=== PATIENT | female | born 1965 | race Caucasian/White ===

== ENCOUNTER 2021-05-03 17:48 | Emergency (ER) | payer OTHER, SELFPAY ==
--- NOTE | ~2021-05-03 | XR_ITS ---
EXAMINATION: XR foot LT min 3V DATE: 05/03/2021 18:10 INDICATION: Left foot pain. TECHNIQUE: 4 views of left foot were obtained. COMPARISON: Left foot radiographs 12/03/2015 FINDINGS: There is mild hallux valgus. There is a transverse extra-articular fracture of base of fift h metatarsal in near-anatomic alignment with sclerotic margins, likely chronic. There is mild osteoar thritis of talonavicular joint and first metatarsophalangeal joint. IMPRESSION: 1. 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 2. Mild polyarticular osteoarthritis. 3. Mild hallux valgus. Reviewed, dictated and finalized at location A.
[2021-05-03 17:54] VITALS: BP 126/61; PULSE 72; RESP 16; TEMP 36.9; O2SAT 100
--- NOTE | 2021-05-03 18:01 | ED.LOWEXIN ---
HPI - Extremity Injury (Lower) General Chief Complaint: Extremity Injury, Lower Stated Complaint: left foot injury Time Seen by Provider: 05/03/21 18:01 Source: patient and RN notes reviewed History of Present Illness HPI Narrative: Patient is a 55-year-old female who presents the urgent care with complaints of left foot pain. Patient states that she had a stress fracture approximately 4 to 5 years ago and this feels the same . Patient states that a week ago she started to feel the pain and continue to walk her normal 3 to 5 miles per day. Patient states that today it is worsened and she has had to increase her dose of tramadol. Denies of any known fall or injury to the foot. No other acute complaints. No acute distress noted. Patient aware of the plan of care. Patient Related Data Home Medications Medication Instructions Recorded Confirmed duloxetine 20 mg PO DAILY 05/03/21 05/03/21 lisinopril 40 mg PO DAILY 05/03/21 05/03/21 tramadol 50 mg PO DAILY 05/03/21 05/03/21 Allergies Allergy/AdvReac Type Severity Reaction Status Date / Time Penicillins Allergy Mild Verified 05/09/19 19:23 levofloxacin Allergy Unknown MUSCLE Verified 05/09/19 19:23 WEAKNESS Review of Systems Review of Systems: CONSTITUTIONAL: Denies fever, chills, or sweats. EYES: Denies visual changes, redness, or discharge. ENT: Denies rhinorrhea, congestion, sore throat, or otalgia. CARDIOVASCULAR: Denies chest pain, palpitations, or edema. RESPIRATORY: Denies cough or dyspnea. GASTROINTESTINAL: Denies abdominal pain, nausea, vomiting, or diarrhea. GENITOURINARY: Denies dysuria or hematuria. SKIN: Denies rash or itching. MUSCULOSKELETAL: Reports of pain to the left foot NEUROLOGIC: Denies headache, numbness, or weakness. All other systems reviewed are negative, except as documented in HPI. PMFSH Comments At the time of my signature, I reviewed and agree with the nursing past medical, surgical, social, and family history. There is no relevant family history pertinent to the patient complaint. Exam Narrative: GENERAL: This is a well-nourished, well-developed patient, in no apparent distress. HEAD: normocephalic, atraumatic. EYES: PERRL. Sclera clear/white. Vision is grossly intact. EARS: External ears normal NOSE: External nose normal with no obvious nasal discharge, nares without redness, no rhinorrhea. THROAT: Mucous membranes moist NECK: Neck supple CARDIOVASCULAR: Regular rate and rhythm without murmurs, gallops, or rubs. RESPIRATORY: Clear to auscultation. Breath sounds equal bilaterally. No wheezes, rales, or rhonchi. SKIN: warm, intact with no suspicious lesions or rash, good texture and turgor. NEURO: awake, alert, and oriented to person, place and time. There were no obvious focal neurologic abnormalities. EXTREMITIES: No clubbing, cyanosis, or edema. No joint tenderness, effusion, or edema noted. No calf tenderness. Negative Homans sign bilaterally. Course Vital Signs Vital signs: Vital Signs Temperature 98.5 F 05/03/21 17:54 Pulse Rate 72 05/03/21 17:54 Respiratory Rate 16 05/03/21 17:54 Blood Pressure 126/61 05/03/21 17:54 Pulse Oximetry 100 05/03/21 17:54 Temperature 98.5 F 05/03/21 17:54 Pulse Rate 72 05/03/21 17:54 Respiratory Rate 16 05/03/21 17:54 Blood Pressure 126/61 05/03/21 17:54 Pulse Oximetry 100 05/03/21 17:54 Reviewed MDM - Extremity Injury (Lower) MDM Narrative Medical decision making narrative: Reviewed x-ray results with the patient. She is aware that x-ray shows arthritis and old nonhealed fracture. There is nothing acute on the x-ray. Advised the patient to use the oral steroid for inflammatory arthritic pains. May use a wrap to the foot while walking to decrease pain. Continue your tramadol use for the pain. Use ice and elevate the foot after walking. Follow-up with your orthopedic/PCP within 2 to 5 days or for worsening symptoms or failure to improve. Diffe
--- NOTE | 2021-05-03 18:25 | PC.NURSE ---
PT DECLINED WHEELCHAIR TO RADIOLOGY
== END 2021-05-03 18:40 | disposition home or self-care (01) ==
PROVIDERS: Emergency Provider Nurse Practitioner Family
DX: M19.072 Primary osteoarthritis, left ankle and foot (principal); Z79.891 Long term (current) use of opiate analgesic
CPT/HCPCS: 73630; 99213; G0463

== ENCOUNTER 2021-08-02 08:59 | Outpatient (CLI) | payer OTHER, SELFPAY ==
--- NOTE | 2021-08-02 09:45 | ECG_ITS ---
Measurements Intervals [place] Rate: 60 P: 8 GA: 204 QRS: 17 QRSD: 100 T: 9 QT: 411 QTc: 412 Interpretive Statements SINUS RHYTHM BORDERLINE AV CONDUCTION DELAY INCOMPLETE RIGHT BUNDLE BRANCH BLOCK BORDERLINE R WAVE PROGRESSION, ANTERIOR LEADS BASELINE ARTIFACT- I, II, III, AVR, AVL, AVF BORDERLINE ECG Electronically Signed On 08-02-2021 10:12:31 INTER[employer] PROJECT MANAGER by Chuy Cohn D.O.
[2021-08-02 10:30] LABS: Basophils Percent Auto 0.3 % (0.2-1.2); Eosinophils Absolute Auto 0.2 K/mm3 (0-0.3); Eosinophils Percent Auto 2.1 % (0-4.4); Hematocrit 43.7 % (37.0-47.0); Immature Granulocyte Absolute 0.04 K/mm3 (0.00-0.031); Immature Granulocyte Percent A 0.5 % (0-0.5); Lymphocytes Absolute Auto 2.33 K/mm3 (0.9-3.2); Lymphocytes Percent Auto 27.1 % (18.3-44.2); Mean Corpuscular Volume 90.7 fl (80-100); Mean Platelet Volume 9.3 fl (7.4-10.4); Monocytes Absolute Auto 0.5 K/mm3 (0.1-0.6); Monocytes Percent Auto 5.7 % (2.6-8.5); Neutrophils Absolute Auto 5.5 K/mm3 (1.3-6.7); Neutrophils Percent Auto 64.3 % (45.5-73.1); Platelet Count Result 293 k/mm3 (150-375); Red Blood Count 4.82 M/mm3 (4.2-5.4); Red Cell Distribution Width 13.4 % (11.5-14.5); White Blood Count 8.6 K/mm3 (4.5-10.0)
[2021-08-02 12:39] LABS: Hemoglobin A1C 5.9 % (<5.7)
[2021-08-02 13:19] LABS: Urine Cotinine NEGATIVE
[2021-08-02 14:24] LABS: Albumin Level 4.5 g/dL (3.5-5.1); Estimated Glomerular Filt Rate > 60; Glucose 112 mg/dL (65-110)
== END 2021-08-02 09:00 | disposition home or self-care (01) ==
LOC: ANHSURGERY 09:04
PROVIDERS: PCP Nurse Practitioner; Visit Provider Orthopaedic Surgery
DX: Z01.818 Encounter for other preprocedural examination (principal); I45.10 Unspecified right bundle-branch block; M17.12 Unilateral primary osteoarthritis, left knee; Z51.81 Encounter for therapeutic drug level monitoring; Z79.899 Other long term (current) drug therapy
CPT/HCPCS: 80307; 82040; 82565; 82947; 83036; 85025; 86850; 86900; 86901; 93005

== ENCOUNTER 2021-08-14 02:11 | Day surgery (SDC) | payer OTHER, SELFPAY ==
--- NOTE | 2021-08-02 09:07 | PC.NURSE ---
Report to the Outpatient Waiting Room, entrance under the green pavilion located off [facility], at time _0800_ on date _08/14/21__. OR Time: _1000 AM__. - You and your visitor will be asked a series of questions to screen for COVID 19 for your protection. - A mask is required within the hospital. - Only one visitor is allowed at this time. Patient visitors will be guided where to wait when not with patient. Preoperative COVID Testing Requirements: No COVID Test needed if: (proof is required; if not received patient will have Rapid Test prior to entry) - Patient has received COVID Vaccine at least 14 days prior to procedure date or - Patient has positive COVID test result within last 90 days of surgery date. COVID Test needed if above criteria is not met If not COVID vaccinated a COVID test must be conducted within 72 hours of surgery and patient is asked to isolate self from time of testing until procedure. You will go to the [employer] [facility] for your COVID testing. The [employer] [facility] site is located at the corner of [address] [facility]. You will only be called if COVID results are positive and your surgeon may reschedule your elective surgery date. Patients may have clear liquids (water, carbonated beverages, clear teas, apple juice) until 3 hours prior to surgery (0700 AM) with a maximum of 20 ounces. - No food from midnight until time of surgery - Infants may have breast milk until 4 hours before surgery, formula 6 hours prior to surgery. - Children will be allowed to drink immediately following surgery. If applicable, please bring a bottle or sippy cup to assist with drinking. Juice, water, soda, and popsicles are readily available. For infants on formula, please bring formula the day of surgery. Pacifiers are allowed. Take the following medications with a SIP of water the morning of surgery: __DULOXETINE, TYLENOL IF NEEDED Medications to discontinue per physician __ALL VITAMINS AND SUPPLEMENTS - 3 DAYS PRIOR TO SURGERY PER ANESTHESIA___ Date to take last dose__08/10/21____ Please no make-up, nail citizen of [place], hairspray, perfume, deodorant, or body powder the day of surgery. No jewelry (including any body piercings) or valuables the day of surgery, leave them at home. Please take a shower or bath the night before, or the morning of, surgery with an antibacterial soap. Wear comfortable, loose fitting clothing. Children are encouraged to wear pajamas. - Jewelry must be removed prior to entering the operating room. Rings and piercings that are not removed may be cut off. - The hospital will not accept responsibility for valuables. - Please leave all valuables, including medications, at home the day of surgery. If you are going home after surgery, a licensed intermodal truck driver must drive you home. - NO public transportation without another adult. - We recommend that an adult stay with you for 24 hours following discharge. - We also recommend that you do not drive, make important decision, drink alcoholic beverages, or take any drugs that were not prescribed by your health care provider for at least 24 hours after your discharge time. For Pediatric surgeries, we recommend two adults accompany the child home (only one inside the building at this time). Follow any additional instructions given to you from your surgeon. Telephone instructions given to PT and asked if any additional questions and then verbalized understanding. Patient advised to call surgeon office or pre surgery nurse liaison [phone] if any additional questions.
[2021-08-02 09:28] VITALS: BP 146/80; PULSE 64; RESP 20; TEMP 37.2; O2SAT 100; BMI 39.7
--- NOTE | 2021-08-02 09:53 | PC.NURSE ---
INFORMED PT OF BMI 39.8 AND BMI NEEDING TO BE BELOW 40 DAY OF SURGERY, DISCUSSED DIET/ACTIVITY PRIOR TO SURGERY AND INFORMED PT WILL BE WEIGHTED DAY OF SURGERY, UNDERSTANDING VOICED.
--- NOTE | 2021-08-09 11:52 | PM.IMHP ---
H&P: HPI History of Present Illness Date/Time: 08/09/21 11:52 The patient is a 56-year-old female who sees Dr. Sharp regarding her left knee. The patient has a chronic ongoing history of pain localized left knee this to primary osteoarthritis. Patient is aching and pain that limits her daily activities she cannot stand or walk for long periods. She reports swelling mechanical symptoms crepitation through the arc of motion aching and pain worse with activity some early by rest. Despite conservative measures including cortisone therapy and anti-inflammatories symptoms continue. The patient has x-rays which show advanced primary osteoarthritis of the left knee joint. At this point the patient has failed conservative measures and this discuss further treatment options in detail with Dr. Sharp she would now like to proceed with a left total knee arthroplasty. Chief Complaint: Left knee pain due to advanced primary osteoarthritis Review of Systems Review of Systems: All systems reviewed & are unremarkable except as noted in HPI and below PMFSH Social History Social History Smoking packs per day: 2 Smoking cigarettes per day: 40.0 Years smoked: 36 Smoking pack-years: 72.00 Smoking status: Former smoker Tobacco type: cigarettes Second hand tobacco smoke exposure: No Smoking end date: 09/07/16 Additional smoking assessment comments: PT DENIES ALL FORMS OF TOBACCO USE Alcohol intake: never Substance use: never Substance use type: does not use Spiritual care concerns: No Meds Home Medications and Allergies Home Medications Medication Instructions Recorded Confirmed Type duloxetine 20 mg PO DAILY 05/03/21 08/02/21 History lisinopril 40 mg PO QAM 05/03/21 08/02/21 History acetaminophen [Tylenol Arthritis 1,300 mg PO QAM 08/02/21 08/02/21 History Pain] biotin 10,000 mcg PO QAM 08/02/21 08/02/21 History cholecalciferol (vitamin D3) 50 mcg PO QAM 08/02/21 08/02/21 History loratadine [Claritin] 10 mg PO QAM 08/02/21 08/02/21 History magnesium 400 mg PO QAM 08/02/21 08/02/21 History mggmbvypjuzm-sci-tsyf-FA-vit K 1 cap PO QAM 08/02/21 08/02/21 History [Bariatric Multivitamins] potassium 99 mg QAM 08/02/21 08/02/21 History Allergies Allergy/AdvReac Type Severity Reaction Status Date / Time Penicillins Allergy Mild Nausea and Verified 08/02/21 09:22 Vomiting, RASH, & CHILLS levofloxacin Allergy Unknown MUSCLE Verified 08/02/21 09:22 WEAKNESS adhesive tape AdvReac REDNESS/DOM Verified 08/02/21 09:22 H ketorolac [From Toradol] AdvReac Vomiting Verified 08/02/21 09:22 Exam Narrative: On exam the patient is noted be a well-developed well-nourished female no acute distress alert oriented x3. Normal mood and affect. Hearing and vision intact. Respiratory is good no distress. Pulse regular rate rhythm. Abdomen benign. Extremities show the patient's left knee to be painful with manipulation and range of motion. She has crepitation through the arc of motion mild effusion swelling and pain with extremes of motion. She has tenderness on the joint lines walks with an antalgic gait because of her left knee pain. Hips move all negative Stinchfield negative JEANINE. Neurovascular patient is intact strength is 5/5 knee joints otherwise stable. Skin is intact. Central nervous system exam within normal limits. Assessment and Plan Additional Plan The patient has advanced primary osteoarthritis left knee joint. The patient has discussed risks benefits limitations alternatives to surgery in great detail with Dr. Sharp she is now ready to proceed with left total knee arthroplasty. The patient is scheduled to undergo surgery August 14, 2021 at [facility] Dr. Sharp. The patient voiced understanding and agrees with the above plan.
[2021-08-14] VITALS (12 sets, daily range): BP systolic 110–142; BP diastolic 61–90; PULSE 65–93; RESP 11–20; TEMP 36–36.7; O2SAT 89–100
--- NOTE | ~2021-08-14 | XR_ITS ---
EXAMINATION: XR knee LT 2V DATE: 08/14/2021 11:53 INDICATION: Total left knee arthroplasty. Postop. TECHNIQUE: 2 views of left knee were obtained. COMPARISON: Left knee radiographs 09/26/2005 FINDINGS: There is a total left knee arthroplasty with patellar resurfacing in near-anatomic alignmen t. No fracture. There are loose bodies posterior to the knee joint, likely in a Kaplan's cyst. There i s gas in the knee joint and soft tissues, consistent with recent surgery. Anterior skin princess are n oted. IMPRESSION: 1. Total left knee arthroplasty in near-anatomic alignment. Reviewed, dictated and finalized at location A. SORTER
--- NOTE | 2021-08-14 07:16 | WPDHPUPDATE1 ---
History and Physical Update Update Date/Time: 08/14/21 07:16 History and Physical has been reviewed, including an updated exam of the patient. There are NO changes in the patient's condition. Risks, benefits, and alternatives have been discussed and questions answered. Patient agrees to proceed with procedure.
--- NOTE | 2021-08-14 08:34 | P.PNAN_ITS ---
Anes - Initial Pre Proc Eval Procedure: Operation Date: 08/14/21 10:00 Proposed Procedures p Left Total Knee Arthroplasty - Rudi Sharp MD Date/Time: 08/14/21 08:34 Surgeon: Rudi Sharp MD Pre Op Diagnosis: left knee OA Patient Data Age: 56 Gender: F Height: 1.77 m Weight: 120.8 kg Last Vital Signs Temp 36.7 C 08/14/21 08:10 Pulse 75 08/14/21 08:10 Resp 16 08/14/21 08:10 BP 134/82 08/14/21 08:10 Pulse Ox 99 08/14/21 08:10 Allergies Allergy/AdvReac Type Severity Reaction Status Date / Time Penicillins Allergy Mild Nausea and Verified 08/14/21 08:23 Vomiting, RASH, & CHILLS levofloxacin Allergy Unknown MUSCLE Verified 08/14/21 08:23 WEAKNESS adhesive tape AdvReac REDNESS/DOM Verified 08/14/21 08:23 H ketorolac [From Toradol] AdvReac Vomiting Verified 08/14/21 08:23 Home Medications Medication Instructions Recorded Confirmed Type duloxetine 20 mg PO DAILY 05/03/21 08/14/21 History lisinopril 40 mg PO QAM 05/03/21 08/14/21 History acetaminophen [Tylenol Arthritis 1,300 mg PO QAM 08/02/21 08/14/21 History Pain] biotin 10,000 mcg PO QAM 08/02/21 08/14/21 History cholecalciferol (vitamin D3) 50 mcg PO QAM 08/02/21 08/14/21 History loratadine [Claritin] 10 mg PO QAM 08/02/21 08/14/21 History magnesium 400 mg PO QAM 08/02/21 08/14/21 History pgpzelbkynzg-yqj-lotq-FA-vit K 1 cap PO QAM 08/02/21 08/14/21 History [Bariatric Multivitamins] potassium 99 mg QAM 08/02/21 08/14/21 History Patient hx anesthesia problems: none Family hx anesthesia problems: none Results Review: All pre-operative results and documents have been reviewed as part of the pre-operative evaluation. PMFSH Social History Social History Smoking packs per day: 2 Smoking cigarettes per day: 40.0 Years smoked: 36 Smoking pack-years: 72.00 Smoking status: Former smoker Tobacco type: cigarettes Second hand tobacco smoke exposure: No Smoking end date: 09/07/16 Additional smoking assessment comments: PT DENIES ALL FORMS OF TOBACCO USE Alcohol intake: never Substance use: never Substance use type: does not use Living arrangements: with family Spiritual care concerns: No Anes - Eval Final PreProcedure Day of Procedure 08/14/21 08:34 Results Review: All pre-operative results and documents have been reviewed as part of the pre-operative evaluation. Informed Consent: The patient's anesthetic plan and its attendant risks and benefits were discussed with the patient/family/POA. Questions were solicited and answers provided to the satisfaction of the patient/family/POA.
--- NOTE | 2021-08-14 08:36 | P.PNAN_ITS ---
Anes - Initial Pre Proc Eval Procedure: Operation Date: 08/14/21 10:00 Proposed Procedures p Left Total Knee Arthroplasty - Rudi Sharp MD Date/Time: 08/14/21 08:36 Surgeon: Rudi Sharp MD Pre Op Diagnosis: left knee OA Patient Data Age: 56 Gender: F Height: 1.77 m Weight: 120.8 kg Last Vital Signs Temp 36.7 C 08/14/21 08:10 Pulse 75 08/14/21 08:10 Resp 16 08/14/21 08:10 BP 134/82 08/14/21 08:10 Pulse Ox 99 08/14/21 08:10 Allergies Allergy/AdvReac Type Severity Reaction Status Date / Time Penicillins Allergy Mild Nausea and Verified 08/14/21 08:23 Vomiting, RASH, & CHILLS levofloxacin Allergy Unknown MUSCLE Verified 08/14/21 08:23 WEAKNESS adhesive tape AdvReac REDNESS/DOM Verified 08/14/21 08:23 H ketorolac [From Toradol] AdvReac Vomiting Verified 08/14/21 08:23 Home Medications Medication Instructions Recorded Confirmed Type duloxetine 20 mg PO DAILY 05/03/21 08/14/21 History lisinopril 40 mg PO QAM 05/03/21 08/14/21 History acetaminophen [Tylenol Arthritis 1,300 mg PO QAM 08/02/21 08/14/21 History Pain] biotin 10,000 mcg PO QAM 08/02/21 08/14/21 History cholecalciferol (vitamin D3) 50 mcg PO QAM 08/02/21 08/14/21 History loratadine [Claritin] 10 mg PO QAM 08/02/21 08/14/21 History magnesium 400 mg PO QAM 08/02/21 08/14/21 History nxzstofsosyu-amw-scor-FA-vit K 1 cap PO QAM 08/02/21 08/14/21 History [Bariatric Multivitamins] potassium 99 mg QAM 08/02/21 08/14/21 History Patient hx anesthesia problems: none Family hx anesthesia problems: none Results Review: All pre-operative results and documents have been reviewed as part of the pre-operative evaluation. [facility] Past Medical History Medical History (Updated 08/14/21 @ 08:37 by Jack Wan MD) Arthritis Depression Hypertension Tobacco abuse Social History Social History Smoking packs per day: 2 Smoking cigarettes per day: 40.0 Years smoked: 36 Smoking pack-years: 72.00 Smoking status: Former smoker Tobacco type: cigarettes Second hand tobacco smoke exposure: No Smoking end date: 09/07/16 Additional smoking assessment comments: PT DENIES ALL FORMS OF TOBACCO USE Alcohol intake: never Substance use: never Substance use type: does not use Living arrangements: with family Spiritual care concerns: No Anes - Eval Final PreProcedure Day of Procedure 08/14/21 08:36 Patient weight: obese Heart: regular rate and rhythm Lungs: decreased breath sounds Airway: Mallampati scale class II Neurological: alert and oriented Last oral intake: >/= 8 hours ASA classification: III Emergent: no Anesthetic plan: proceed Anesthesia type and monitoring: general LMA and standard monitoring Results Review: All pre-operative results and documents have been reviewed as part of the pre-operative evaluation. Informed Consent: The patient's anesthetic plan and its attendant risks and benefits were discussed with the patient/family/POA. Questions were solicited and answers provided to the satisfaction of the patient/family/POA.
[2021-08-14] MEDS: LACTATED RINGERS 1,000 ML 30 ML IV CONT ×3 (08:48→13:00)
[2021-08-14] MEDS: TRANEXAMIC ACID 1,000MG/ISO100 1,000 MG/100 ML BAG 200 MG IVPB (08:50)
[2021-08-14] MEDS: ACETAMINOPHEN 500 MG TABLET 1000 MG PO (08:59)
--- NOTE | 2021-08-14 09:35 | WPDANESPNB ---
Anes - Peripheral Nerve Block Date/Time: 08/14/21 09:35 I have discussed with the patient/family/POA the placement of a peripheral nerve block for post-operative pain management, including associated risks, benefits, complications, and side effects. Alternative methods of post-operative analgesia were detailed. Questions were solicited and answers provided to the satisfaction of the patient/family/POA. Time-Out: A pre-procedural Time-Out was completed immediately before starting the procedure and confirmed: Patient Identification, Site, Procedure, Patient Position and the Availability of Requisite Equipment. Clinical Indications: Acute post-operative pain management requested by the operative surgeon. Nerve Block Insertion Note Anes-nerve block: adductor canal left Patient position: supine Skin prep: chlorhexidine Needle: 22 gauge, stimulating, insulated echogenic needle. Needle length: 80 mm Technique: ultrasound Technique comment: mid2mg [id number] Injectate: bupivacaine 0.5% with epi 5 mcg/ml (30ml no epi) and dexamethasone (mg) (4) Observations: tolerated well Complications: none Procedure start time:: 921 Procedure end time:: 929
[2021-08-14] MEDS: ceFAZolin 3 GM/D5W 100 ML 100 ML IVPB (09:51)
--- NOTE | 2021-08-14 11:00 | W.PM.PROC2 ---
Procedure Note - Detailed Date of Procedure 08/14/21 Pre-op Diagnosis left knee OA Post-op Diagnosis same Procedure Performed [Left] total knee arthroplasty Surgeon Rudi Sharp MD Learning And Development Analyst Harshal Jimenez Anesthesia general Description of Procedure The patient was brought to the operating room. General anesthetic was administered. Placed on the operating table and sterilely prepped and draped in usual manner. A longitudinal incision was made. Tourniquet inflated to 300 mmHg for a total of [time] minutes. Dissection carried down to the fascia. Medial parapatellar incision was made and the patella subluxated laterally. Patella cut from [24] to [16] mm and sized for a 37] mm button. The tibia cut perpendicular to the long axis and femur cut in 5 degrees of valgus, a [70] femur trialed. [75] tibia was felt to fit the best. The soft tissue balanced, hemostasis obtained. All [address], [75] tibia, [70] femur, [37] mm patella, and [11 ] mm poly. Motion was 0-125 degrees with good stablility and flexion and extension. The wound was closed with #2 vicryl, 2-0 Vicryl and princess. Estimated Blood Loss 200 Drains No Packing No Pathology none sent Complications No immediate complications Condition stable Disposition PACU
[2021-08-14] MEDS: fentaNYL CITRATE INJ (*CRX) 100 MCG/2 ML VIAL 25 MCG IV PUSH ×8 (11:55→13:00)
[2021-08-14] MEDS: HYDROmorphone HCL INJ (*CRX) 1 MG/ML SYR IV PUSH ×3 (12:55→13:25)
[2021-08-14] MEDS: SODIUM CHLORIDE 0.9% IV 1,000 ML 125 ML IV CONT (15:28)
[2021-08-14] MEDS: HYDROcodone/acetaminophen (*CRX) 7.5-325 MG TABLET 1 TAB PO ×2 (15:32→23:53)
[2021-08-14] MEDS: ceFAZolin 2 GM/D5W 50 ML 2 GM/50 ML BAG IVPB (15:51)
[2021-08-14] MEDS: SENNA/DOCUSATE SODIUM TABLET 2 TAB PO (16:48)
[2021-08-14] MEDS: RIVAROXABAN 10 MG TABLET PO (16:48)
[2021-08-14] MEDS: CYCLOBENZAPRINE HCL 10 MG TABLET PO (18:36)
[2021-08-14] MEDS: HYDROcodone/acetaminophen (*CRX) 5-325 MG TABLET 1 TAB PO (20:09)
[2021-08-15] MEDS: CYCLOBENZAPRINE HCL 10 MG TABLET PO (01:58)
[2021-08-15 02:00] VITALS: BP 128/81; PULSE 85; RESP 20
[2021-08-15 04:00] VITALS: RESP 20
[2021-08-15] MEDS: HYDROcodone/acetaminophen (*CRX) 7.5-325 MG TABLET 1 TAB PO ×2 (05:46→13:43)
[2021-08-15 07:41] LABS: Basophils Percent Auto 0.2 % (0.2-1.2); Hematocrit 35.9 % (37.0-47.0); Hemoglobin 11.9 g/dL (12.0-15.0); Immature Granulocyte Absolute 0.04 K/mm3 (0.00-0.031); Immature Granulocyte Percent A 0.4 % (0-0.5); Lymphocytes Absolute Auto 1.53 K/mm3 (0.9-3.2); Lymphocytes Percent Auto 13.5 % (18.3-44.2); Mean Corpuscular HGB Conc 33.1 g/dl (32-36); Mean Corpuscular Hemoglobin 28.7 pg (26-34); Mean Corpuscular Volume 86.7 fl (80-100); Mean Platelet Volume 9.3 fl (7.4-10.4); Monocytes Absolute Auto 1.2 K/mm3 (0.1-0.6); Monocytes Percent Auto 10.2 % (2.6-8.5); Neutrophils Absolute Auto 8.6 K/mm3 (1.3-6.7); Neutrophils Percent Auto 75.7 % (45.5-73.1); Platelet Count Result 272 k/mm3 (150-375); Red Blood Count 4.14 M/mm3 (4.2-5.4); Red Cell Distribution Width 13.5 % (11.5-14.5); White Blood Count 11.3 K/mm3 (4.5-10.0)
[2021-08-15 07:44] LABS: Anion Gap 5 mmol/L (8-16); Blood Urea Nitrogen 11 mg/dL (7-17); Calcium 8.7 mg/dL (8.4-10.2); Carbon Dioxide 25 mmol/L (22-30); Chloride 103 mmol/L (98-107); Estimated CRCL calculation 128 ml/min; Estimated Glomerular Filt Rate > 60; Glucose 155 mg/dL (65-110); Potassium 3.6 mmol/L (3.4-5.0); Sodium 133 mmol/L (137-145)
[2021-08-15] MEDS: HYDROcodone/acetaminophen (*CRX) 5-325 MG TABLET 1 TAB PO (09:28)
--- NOTE | 2021-08-15 10:06 | P.PNAN_ITS ---
Anes - Prog Note Post-Op Date/Time: 08/15/21 10:06 Cardiovascular status: normal Respiratory status: normal Airway patency: baseline Mental status: baseline Post-Op hydration status: normal Vital Signs: Last Vital Signs Temp 36.0 C L 08/14/21 13:52 Pulse 85 08/15/21 02:00 Resp 20 08/15/21 04:00 BP 128/81 08/15/21 02:00 Pulse Ox 99 08/14/21 20:00 Pain Score (VAS): 0 I/O: Intake & Output 08/14/21 08/15/21 08/15/21 23:59 07:59 15:59 Intake Total 250 Balance 250 Laboratory Tests 08/15/21 07:06 08/15/21 07:06 08/15/21 08/15/21 07:06 07:06 WBC 11.3 H RBC 4.14 L Hgb 11.9 L Hct 35.9 L MCV 86.7 MCH 28.7 MCHC 33.1 RDW 13.5 Plt Count 272 MPV 9.3 Immature Gran % (Auto) 0.4 Neut % (Auto) 75.7 H Lymph % (Auto) 13.5 L [place] % (Auto) 10.2 H Eos % (Auto) 0.0 Baso % (Auto) 0.2 Lymph # (Auto) 1.53 [place] # (Auto) 1.2 H Eos # (Auto) 0.0 Baso # (Auto) 0.0 Abs Immat Gran (auto) 0.04 H Absolute Neuts (auto) 8.6 H Absolute Nucleated RBC 0.0 Nucleated RBC % 0.0 Sodium 133 L Potassium 3.6 Chloride 103 Carbon Dioxide 25 Anion Gap 5 L BUN 11 Creatinine 0.60 L Estim Creat Clear Calc 128 Estimated GFR > 60 Glucose 155 H Calcium 8.7 Post-procedural complaints: none Patient Feedback: Patient satisfied with anesthetic care.
--- NOTE | 2021-08-15 10:37 | PCOTNOTE ---
On 08/15/21, the student, Marleny Cummings, provided care and [facility]. I have reviewed the student's documentation and agree with the findings.
--- NOTE | 2021-08-15 11:20 | PM.PNORT ---
Progress Note: A&P Additional Plan Patient is doing well postop left total knee arthroplasty, we will get her through a course of therapy this afternoon then discharged home. Patient is having some postop pain but otherwise looks good she agreed with the above plan she will call if any further problems difficulties or questions follow up 2 weeks postop for recheck. See discharge orders. Subjective Subjective Date/Time Seen: 08/15/21 11:20 The patient is postop day 1 status post left total knee arthroplasty. Some pain control issues but otherwise doing okay with ambulation she was able to get up and down the [place]. No other complaints. She thinks she may related to go home later today we will try afternoon therapy and if she does well we will get her discharged home. She voiced understanding and agrees with the plan. Review of Systems Review of Systems: All systems reviewed & are unremarkable except as noted in HPI and below Exam Narrative: Patient is alert oriented x3. Normal mood and affect. No acute distress. Vital signs are stable she is afebrile neurovascularly she is intact wound is clean and dry calves are benign. Ambulated well in therapy independently with a walker. Objective Data Vital Signs Vital Signs: Vital Signs - 24 hr 08/14/21 11:40 08/14/21 11:50 08/14/21 12:05 Temperature 36.4 C Pulse Rate 65 65 71 Respiratory Rate 19 19 16 Blood Pressure 125/84 125/84 126/71 Pulse Oximetry 100 100 96 08/14/21 12:20 08/14/21 12:35 08/14/21 12:50 Temperature Pulse Rate 67 69 68 Respiratory Rate 11 L 18 14 Blood Pressure 130/84 135/71 117/61 Pulse Oximetry 96 92 93 08/14/21 13:10 08/14/21 13:25 08/14/21 13:52 Temperature 36.0 C L Pulse Rate 71 72 69 Respiratory Rate 13 16 12 Blood Pressure 110/75 121/72 112/66 Pulse Oximetry 95 96 89 L 08/14/21 20:00 08/15/21 02:00 08/15/21 04:00 Temperature Pulse Rate 65 85 Respiratory Rate 20 20 20 Blood Pressure 116/72 128/81 Pulse Oximetry 99 Intake/Output Intake/Output: Intake & Output 08/12/21 08/13/21 08/14/21 08/15/21 23:59 23:59 23:59 23:59 Intake Total 1550 Balance 1550 Meds/Results Medications: Active Medications Generic Name Dose Route Start Last Admin Trade Name Freq PRN Reason Stop Dose Admin Hydrocodone Bitart/Acetaminophen 1 tab 08/14/21 13:37 08/15/21 09:28 Hydrocodone/Acetaminophen (*Crx) 5-325 Mg Tablet PO 1 tab Q4H PRN Administration Pain Rated 4-6 Hydrocodone Bitart/Acetaminophen 1 tab 08/14/21 13:37 08/15/21 05:46 Hydrocodone/Acetaminophen (*Crx) 7.5-325 Mg Tablet PO 1 tab Q6H PRN Administration Pain Rated 7-10 Cyclobenzaprine HCl 10 mg 08/14/21 13:37 08/15/21 01:58 Cyclobenzaprine Hcl 10 Mg Tablet PO 10 mg Q8H PRN Administration Spasms Diphenhydramine HCl 25 mg 08/14/21 13:37 Diphenhydramine Hcl Inj 50 Mg/Ml Vial IV PUSH Q6H PRN Itching Fentanyl Citrate 25 mcg 08/14/21 08:38 08/14/21 13:00 Fentanyl Citrate Inj (*Crx) 100 Mcg/2 Ml Vial IV PUSH 25 mcg Q2M PRN Administration Pain Lactated Ringer's 1,000 mls @ 30 mls/hr 08/14/21 07:10 08/14/21 11:40 Lr - Lactated Ringers Iv IV CONT Infused .Q24H RUMA Infusion Lactated Ringer's 1,000 mls @ 30 mls/hr 08/14/21 08:40 08/14/21 13:35 Lr - Lactated Ringers Iv IV CONT Infused .Q24H RUMA Infusion Naloxone HCl 0.1 mg 08/14/21 13:37 Naloxone Hcl 0.4 Mg/Ml Vial IV PUSH Q2M PRN Opiate Reversal Ondansetron HCl 4 mg 08/14/21 08:38 Ondansetron Inj 4 Mg/2 Ml Vial IV PUSH ONCE PRN Nausea Polyethylene Glycol 17 gm 08/15/21 09:00 Polyethylene Glycol 3350 17 Gm Powd.Pack PO QAM RUMA Rivaroxaban 10 mg 08/14/21 17:00 08/14/21 16:48 Rivaroxaban 10 Mg Tablet PO 08/25/21 17:01 10 mg DAILY@17 RUMA Administration Senna/Docusate Sodium 2 tab 08/14/21 17:00 08/14/21 16:48 Senna/Docusate Sodium Tablet PO 2 tab BI
--- NOTE | 2021-08-15 11:31 | PM.DS ---
DS: Admitting Diagnosis Discharge Date August 15, 2021 Admitting Diagnosis Admitting diagnosis severe primary osteoarthritis arthritis left knee joint. Discharge diagnosis severe primary osteoarthritis left knee joint status post left total knee arthroplasty. DS: Summary Hospital Course Hospital Course: Patient was admitted on August 14, 2021 overnight status post left total knee arthroplasty. Postop day 1 she was doing well, moderate pain was noted status post surgery fairly well controlled with Metter and Flexeril orally. Vital signs were stable the patient was afebrile neurovascularly she is intact wound is clean and dry calves are benign patient was up ambulating independently with a walker in therapy. Patient was stable discharge to home on August 15, 2021 in good condition and stable. Discharge was completed she voiced understanding and agreed with the above discharge plan. Time Spent with Patient Time attestation: Total time spent providing and/or coordinating discharge services: Exam Narrative: Postop day 1 alert oriented x3. Normal mood and affect. Vital signs stable. Afebrile. Neurovascular the patient is intact. Calves are benign wound is clean and dry. Ambulating independently with a walker in therapy. DS: Data Data Completed and Pending Labs on day of discharge: Labs from last 24 hours 08/15/21 08/15/21 07:06 07:06 WBC 11.3 H RBC 4.14 L Hgb 11.9 L Hct 35.9 L MCV 86.7 MCH 28.7 MCHC 33.1 RDW 13.5 Plt Count 272 MPV 9.3 Immature Gran % (Auto) 0.4 Neut % (Auto) 75.7 H Lymph % (Auto) 13.5 L Green % (Auto) 10.2 H Eos % (Auto) 0.0 Baso % (Auto) 0.2 Lymph # (Auto) 1.53 Green # (Auto) 1.2 H Eos # (Auto) 0.0 Baso # (Auto) 0.0 Abs Immat Gran (auto) 0.04 H Absolute Neuts (auto) 8.6 H Absolute Nucleated RBC 0.0 Nucleated RBC % 0.0 Sodium 133 L Potassium 3.6 Chloride 103 Carbon Dioxide 25 Anion Gap 5 L BUN 11 Creatinine 0.60 L Estim Creat Clear Calc 128 Estimated GFR > 60 Glucose 155 H Calcium 8.7 Discharge Plan Discharge Patient Disposition: Home, Self-Care Activity: no shower and as tolerated Diet: as tolerated Wound Care Instructions: keep dressing dry and change dressing daily Discharge Instructions: Patient is discharged home on general diet activity as tolerated weight-bearing as tolerated left lower extremity with a walker at all times. Should keep the wound clean and dry change dressing daily. No showers for now. Patient is discharged with Xarelto 10 mg daily for DVT prophylaxis for 2 week postop course when this is complete she will get aspirin 325 mg b.i.d. x1 month. Also discharged with Metter 7 5 mg 1 tablet p.o. q.4 hours p.r.n. severe pain. Outpatient physical therapy per total knee protocol began at the beginning next week at our office. Patient will follow-up at 2 weeks postop for staple removal will recheck call the office at [phone] for any problems difficulties or questions. Stand Alone Forms: Avoid NSAIDs, General Discharge Instructions Follow-up/Referrals: Rudi Sharp MD [Physician] - Harshal Jimenez PA [Physician Slip Tender] - Discharge Medications: New cyclobenzaprine 10 mg Tablet 10 mg PO Q8H PRN (Reason: Spasms) Qty: 40 RF: 0 hydrocodone-acetaminophen 7.5-325 mg Tablet 1 tablet PO Q6H PRN (Reason: Pain Rated 7-10) Qty: 50 RF: 0 Xarelto 10 mg Tablet 10 mg PO DAILY@17 Qty: 13 RF: 0 Continued lisinopril 40 mg tablet 40 mg PO QAM RF: 0 duloxetine 20 mg capsule,delayed release(DR/EC) 20 mg PO DAILY RF: 0 potassium 99 mg Tablet 99 mg QAM RF: 0 biotin 10,000 mcg Capsule 10,000 mcg PO QAM RF: 0 loratadine [Claritin] 10 mg Tablet 10 mg PO QAM RF: 0 magnesium 200 mg Tablet 400 mg PO QAM RF: 0 cholecalciferol (vitamin D3) 50 mcg (2,000 unit) Tablet 50 mcg PO QAM RF: 0 Bariatric Multivitamins 45 mg iron- 800 mcg-120 m
== END 2021-08-15 14:47 | disposition home or self-care (01) ==
LOC: ANHSURGERY 07:58 → ANHSUROVER 13:40
PROVIDERS: PCP Nurse Practitioner; Visit Provider Orthopaedic Surgery
PROC: (CPT 27447; principal; 2021-08-14 10:00)
DX: M17.12 Unilateral primary osteoarthritis, left knee (principal); G89.18 Other acute postprocedural pain; I10 Essential (primary) hypertension; F32.9 Major depressive disorder, single episode, unspecified; Z87.891 Personal history of nicotine dependence; E66.9 Obesity, unspecified; Z68.38 Body mass index [BMI] 38.0-38.9, adult
CPT/HCPCS: 27447; 64447; 36415; 73560; 80048; 80307; 82040; 82565; 82947; 83036; 85025; 86850; 86900; 86901; 93005; 97110; 97116; 97161; 97165; 97530; 97535; A9270; C1713; C1776; J0171; J0690; J1100; J1170; J2250; J2270; J2405; J2704; J2795; J3010; J3370; J7030; J7120

== ENCOUNTER 2021-12-30 14:40 | Emergency (ER) | payer OTHER, SELFPAY ==
[2021-12-30 14:48] VITALS: BP 115/74; PULSE 82; RESP 16; TEMP 36.7; O2SAT 100
--- NOTE | 2021-12-30 15:36 | ED.URI ---
HPI - URI/Sore Throat General Chief Complaint: Upper Respiratory Infection Stated Complaint: Sinus Congestion Time Seen by Provider: 12/30/21 15:27 Source: patient and RN notes reviewed Mode of arrival: ambulatory Limitations: no limitations History of Present Illness HPI Narrative: Patient presents today complaining of a 10-day history of cough, postnasal drip, sinus pressure, nasal congestion. Denies fever, shortness of breath, sore throat. She has been taking Coricidin and an allergy pill without relief. No recent antibiotic use. MD elicited complaint: cough, nasal congestion and sinus pain Related Data Home Medications Medication Instructions Recorded Confirmed duloxetine 20 mg PO DAILY 05/03/21 12/30/21 lisinopril 40 mg PO QAM 05/03/21 12/30/21 Bariatric Multivitamins 1 cap PO QAM 08/02/21 12/30/21 biotin 10,000 mcg PO QAM 08/02/21 12/30/21 cholecalciferol (vitamin D3) 50 mcg PO QAM 08/02/21 12/30/21 loratadine [Claritin] 10 mg PO QAM 08/02/21 12/30/21 magnesium 400 mg PO QAM 08/02/21 12/30/21 potassium 99 mg QAM 08/02/21 12/30/21 Allergies Allergy/AdvReac Type Severity Reaction Status Date / Time Penicillins Allergy Mild Nausea and Verified 12/30/21 15:06 Vomiting, RASH, & CHILLS levofloxacin Allergy Unknown MUSCLE Verified 12/30/21 15:06 WEAKNESS adhesive tape AdvReac REDNESS/DOM Verified 12/30/21 15:06 H ketorolac [From Toradol] AdvReac Vomiting Verified 12/30/21 15:06 Review of Systems Review of Systems: CONSTITUTIONAL: Denies body aches, fever, chills, or sweats. EYES: Denies visual changes, redness, or discharge. ENT: Denies rhinorrhea, sore throat, or otalgia.+ Congestion, sinus pressure, postnasal drip CARDIOVASCULAR: Denies chest pain, palpitations, or edema. RESPIRATORY: Denies dyspnea.+ Cough GASTROINTESTINAL: Denies abdominal pain, nausea, vomiting, or diarrhea. GENITOURINARY: Denies dysuria or hematuria. SKIN: Denies rash, itching, or wounds. MUSCULOSKELETAL: Denies back pain, joint pain, or myalgia. NEUROLOGIC: Denies headache, numbness, tingling, or weakness. PSYCH: Denies depression or anxiety. [facility] Past Medical History Medical History (Updated 12/30/21 @ 15:43 by FIORELLA GarciaP, ) Arthritis Depression Hypertension Tobacco abuse Surgical History Surgical History (Updated 12/30/21 @ 15:44 by Isha Urbina [facility], ) Bariatric surgery status H/O: hysterectomy History of cholecystectomy Hx of tonsillectomy Social History Social History Smoking packs per day: 2 Smoking cigarettes per day: 40.0 Years smoked: 36 Smoking pack-years: 72.00 Smoking status: Former smoker Tobacco type: cigarettes Second hand tobacco smoke exposure: Yes Smoking end date: 09/07/16 Additional smoking assessment comments: PT DENIES ALL FORMS OF TOBACCO USE Alcohol intake: never Substance use: never Substance use type: does not use Spiritual care concerns: No Comments At time of signature, I have reviewed and agree with nursing past medical, surgical, social and family history unless otherwise noted. Please see nursing chart for further information. There is no relevant family history pertinent to the presenting complaint Exam Narrative: GENERAL: Well-appearing, well-nourished, and in no acute distress. HEAD: Normocephalic, atraumatic. EYES: EOMI. No redness or drainage. Conjunctivae normal. ENT: Mucous membranes pink and moist. Nares congested. Bilateral nasal turbinates are edematous. Bilateral maxillary sinus tenderness. No frontal sinus tenderness. TMs normal bilaterally with bilateral middle ear effusions without evidence of infection. Throat normal. Uvula midline. NECK: Normal AROM. Supple. No lymphadenopathy. CHEST: No respiratory distress. Clear to auscultation. HEART: Regular rate and rhythm. No murmur appreciated. Normal peripheral pulses. EXTREMITIES: N
== END 2021-12-30 15:45 | disposition home or self-care (01) ==
PROVIDERS: Emergency Provider Nurse Practitioner
DX: J01.00 Acute maxillary sinusitis, unspecified (principal); I10 Essential (primary) hypertension; F32.9 Major depressive disorder, single episode, unspecified; Z87.891 Personal history of nicotine dependence
CPT/HCPCS: 99213; G0463